=== PATIENT | female | born 1930 | race Caucasian/White ===

== ENCOUNTER 2019-03-02 14:06 | Outpatient (CLI) | payer MEDICARE ==
--- NOTE | 2019-03-02 15:17 | ULT ---
ULTRASOUND RETROPERITONEUM COMPLETE: (RENAL) HISTORY: 89-year-old female with chronic kidney disease, Stage IV. FINDINGS: The right kidney measures 9.5 x 4.5 x 4.5 cm. The left kidney measures 8.5 x 4.5 x 4.0 cm. Both kidn eys have normal cortical thickness and normal cortical echogenicity. There is no hydronephrosis. The urinary bladder is almost empty and therefore cannot be evaluated. IMPRESSION: 1. No hydronephrosis. 2. Empty bladder. 3. Bilateral kidneys are somewhat small. jn [] POS: [facility]
== END 2019-03-02 14:07 | disposition home or self-care (01) ==
LOC: SCSULT 14:06
PROVIDERS: ATTEND Internal Medicine Nephrology
DX: N18.4 Chronic kidney disease, stage 4 (severe) (principal)
CPT/HCPCS: 76770

== ENCOUNTER 2019-08-03 14:53 | Inpatient (IN) | payer MEDICARE ==
[2019-08-03 15:30] LABS: #Eosinphils 0.1 thou/uL (0.0-0.7); #Lymphocytes 0.8 thou/uL (1.20-3.40); #Monocytes 0.5 thou/uL (0.11-0.59); #Neutrophils 6.2 thou/uL (1.40-6.50); %Basophils 0.1 % (0.0-1.0); %Eosinophils 0.8 % (0.0-10.0); %Lymphocytes 10.3 % (21.0-51.0); %Monocytes 7.1 % (0.0-10.0); %Neutrophils 81.8 % (42.0-75.0); Hemoglobin 12.2 g/dL (12.0-16.0); Mean Corpuscular HGB CONC 32.8 g/dL (32.0-36.0); Mean Corpuscular Hemoglobin 29.4 pg (27.0-31.0); Mean Corpuscular Volume 89.5 fL (78.0-98.0); Mean Platelet Volume 9.4 fL (7.4-10.4); Platelet Count 210 thou/uL (130-400); RBC Distribution Width 14.3 % (11.5-14.5); Red Blood Cell (RBC) Count 4.14 mill/uL (4.20-5.40); White Blood Cell (WBC) Count 7.6 thou/uL (4.8-10.8)
[2019-08-03 15:35] LABS: Prothrombin Time 22.4 SEC (12.0-14.7)
[2019-08-03 15:36] LABS: PTT 43.7 SEC (22.9-36.1)
[2019-08-03 15:52] LABS: ALT (SGPT) 36 U/L (8-55); AST (SGOT) 36 U/L (5-34); Albumin 4.3 g/dL (3.4-4.8); Alkaline Phosphatase 130 U/L (40-150); Anion Gap 13 mmol/L (10-20); BUN (Urea Nitrogen) 24 mg/dL (9.8-20.1); Bilirubin, Total 0.7 mg/dL (0.2-1.2); Calc. Creatinine Clearance 0 mL/min (70-130); Calcium 9.6 mg/dL (7.8-10.44); Carbon Dioxide 26 mmol/L (23-31); Chloride 104 mmol/L (98-107); Estimated GFR-MDRD 42; Globulin 2.9 g/dL (2.4-3.5); Glucose 85 mg/dL (83-110); Potassium 3.9 mmol/L (3.5-5.1); Protein, Total 7.2 g/dL (6.0-8.3); Sodium 139 mmol/L (136-145)
[2019-08-03] MEDS ORDERED: Pantoprazole 40 MG VIAL ONE (16:07)
[2019-08-03 16:36] LABS: Bilirubin Negative (Negative); Blood, Urine Negative (Negative); Clarity Clear (Clear); Glucose, Urine (Dipstick) Normal (Negative); Leukocyte Negative Leu/uL (Negative); Nitrite Negative (Negative); Protein, Urine (Dipstick) Negative (Neg-Trace); Urobilinogen Normal mg/dL (Less than 2)
[2019-08-03 18:24] VITALS: BMI 25.9
[2019-08-03] MEDS ORDERED: ALPRAZolam 0.25 MG TAB PO PRN (20:30)
[2019-08-03] MEDS: Carvedilol 6.25 MG TAB PO SCH (20:57)
[2019-08-03] MEDS: Amiodarone 200 MG TAB PO SCH (20:57)
[2019-08-03] MEDS: Dextrose 5 % And 0.9 % NaCl 1,000 ML IV SCH (20:57)
[2019-08-03] MEDS: Zolpidem Tartrate 5 MG TAB PO SCH (20:57)
--- NOTE | 2019-08-04 02:52 | HP ---
CHIEF COMPLAINT: GI bleed. HISTORY OF PRESENT ILLNESS: The patient is an 89-year-old female who was in her usual state of staying awake all through the night. She has her nights and days backwards. When at about 2 a.m. on the date of admission, she started having horrible mid-epigastric cramping and pain. She went to the bathroom and she states that she nearly passed out, but she did not lose consciousness, and in the process of this, she expelled a whole lot of bloody stool. She continued to do this through the night, and finally told her children about it later that morning, they brought her to the emergency room where she was found to indeed be guaiac positive. The stools were noted to be bright red in nature. She is on two blood thinners for atrial fibrillation, Plavix and Eliquis. She has been very noncompliant with followup to her PCP, so she has never received a colonoscopy that was recommended in the past. She continues to have abdominal cramping with her passage of bright red stools in the hospital, when she has been admitted to her room, she has had 5 additional stools with bright red blood passing each time. She, however, denies shortness of breath, denies chest pain, denies feeling lightheaded or dizzy on standing. Her appetite has been good. The patient is placed n.p.o. status and a GI consult will be obtained in the morning. PAST MEDICAL HISTORY: As mentioned above. She has a history of atrial fibrillation, diabetes type 2, mainly controlled with diet. She is noncompliant to follow up. 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 History of hypertension, hyperlipidemia. PAST SURGICAL HISTORY: Includes breast biopsy, coronary artery bypass graft surgery x3 vessels, cholecystectomy, and hysterectomy, as well as carotid artery surgery. PSYCHIATRIC HISTORY: Significant for anxiety and depression. SOCIAL HISTORY: She is now two years as a , who denies alcohol or drug use and has never smoked. ALLERGIES: SHE HAS NO KNOWN DRUG ALLERGIES. MEDICATIONS: On admission include: 1. Furosemide 40 mg q.a.m. 2. Ambien 10 mg p.r.n. for insomnia. 3. Plavix 75 mg daily. 4. Amiodarone 200 mg daily. 5. Sertraline 50 mg daily. 6. Eliquis 5 mg b.i.d. 7. Levothyroxine 25 mcg p.o. daily. 8. Alprazolam 0.25 mg 1 to 3 at bedtime for insomnia. REVIEW OF SYSTEMS: CONSTITUTIONAL: At the time of admission, she denies fevers or chills. She does admit to have been fatigued and general malaise. HEENT: Denies drainage from eyes, ears, nose, or throat. No lesions in such. CARDIOVASCULAR: Denies chest pain or palpitations. CHEST: Denies cough or dyspnea. GI: Admits to recent abdominal pain with cramps, diarrhea, and blood in stool, but denies nausea or vomiting. : Denies dysuria or blood in urine. MUSCULOSKELETAL: Has mild arthritis, but no acute pains in joints. SKIN: No new rashes or lesions. LYMPHATIC: No areas of bruising or edema. PHYSICAL EXAMINATION: VITAL SIGNS: At the time of admission, vital signs on arrival in the ER, blood pressure 152/75, pulse 92, respirations 18, pain scale is 0, O2 saturation 96% on room air. GENERAL: Well-developed, well-nourished, elderly female, alert, cooperative. HEENT: Normocephalic, atraumatic. Pupils are equal, round, and reactive to light. Arcus senilis bilaterally. Pale conjunctivae. Nares and pharynx are clear. NECK: Supple. Trachea midline. No mass. CHEST: Clear to auscultation. BREASTS: Exam deferred. HEART: Regular rate and rhythm. ABDOMEN: Soft, nontender without organomegaly. : Deferred. RECTAL: Per ER physician, heme-positive. No masses in the rectum. EXTREMITIES: Without clubbing, cyanosis, or edema. Symmetrical muscular tone development noted. SKIN: Somewhat pale with poor turgor. No acute lesions. NEUROLOGIC: Cranial nerves are intact. Gait and cerebellar function are untested. Sensory exam is intact. Mental status is at baseline, which is showing signs of early dementia. A confusion probably related to having her nights and days backwards and some confusion noted over how to take her medication. Her daughter is there, has historian to help correct her. LABORATORY DATA: On admission, WBCs 7.6, hemoglobin 12.2, hematocrit 37.0 with platelets at 210. Sodium 139, potassium 3.9, chloride 104, CO2 of 26, BUN 24, creatinine 1.22 with GFR 42. Liver functions unremarkable. Cardiac enzymes negative. Urinalysis unremarkable. PT is 22.4, INR 2.0 with an APTT of 43.7. ASSESSMENT: 1. Hematochezia with bright red blood per rectum. 2. History of atrial fibrillation, on anticoagulation. 3. Hypertension. 4. Anxiety disorder. 5. History of general medical noncompliance. PLAN: The patient will be kept n.p.o. GI consultation will be sought. Maintenance fluids will be maintained. 2 units will be typed and held in case further hemorrhage occurs. The patient wishes to be a DNR witnessed by myself, the nurse, the patient, and her daughter as this was confirmed, and then serial re-evaluation of the patient. Job ID: [id number]
[2019-08-04] MEDS: Dextrose 5 % And 0.9 % NaCl 1,000 ML IV SCH ×3 (05:16→21:05)
[2019-08-04] MEDS: Levothyroxine Sodium 25 MCG TAB PO SCH (05:17)
[2019-08-04 06:07] LABS: #Eosinphils 0.1 thou/uL (0.0-0.7); #Lymphocytes 0.6 thou/uL (1.20-3.40); #Monocytes 0.6 thou/uL (0.11-0.59); #Neutrophils 4.1 thou/uL (1.40-6.50); %Basophils 0.1 % (0.0-1.0); %Eosinophils 1.9 % (0.0-10.0); %Lymphocytes 11.7 % (21.0-51.0); %Monocytes 10.6 % (0.0-10.0); %Neutrophils 75.7 % (42.0-75.0); Hemoglobin 9.9 g/dL (12.0-16.0); Mean Corpuscular HGB CONC 32.3 g/dL (32.0-36.0); Mean Corpuscular Volume 89.9 fL (78.0-98.0); Mean Platelet Volume 9.5 fL (7.4-10.4); Platelet Count 176 thou/uL (130-400); Red Blood Cell (RBC) Count 3.39 mill/uL (4.20-5.40); White Blood Cell (WBC) Count 5.5 thou/uL (4.8-10.8)
[2019-08-04 06:25] LABS: Anion Gap 9 mmol/L (10-20); BUN (Urea Nitrogen) 23 mg/dL (9.8-20.1); Calc. Creatinine Clearance 34 mL/min (70-130); Calcium 8.3 mg/dL (7.8-10.44); Carbon Dioxide 26 mmol/L (23-31); Chloride 105 mmol/L (98-107); Estimated GFR-MDRD 43; Glucose 107 mg/dL (83-110); Potassium 3.3 mmol/L (3.5-5.1); Sodium 137 mmol/L (136-145)
[2019-08-04] MEDS ORDERED: cloNIDine 0.1 MG TAB PO PRN (09:40)
[2019-08-04] MEDS: Carvedilol 6.25 MG TAB PO SCH ×2 (11:24→21:06)
[2019-08-04] MEDS: Potassium Chloride 20 MEQ TAB PO SCH (11:26)
[2019-08-04 17:59] LABS: Hemoglobin 10.7 g/dL (12.0-16.0)
[2019-08-04] MEDS: Zolpidem Tartrate 5 MG TAB PO SCH (21:06)
[2019-08-04] MEDS: Amiodarone 200 MG TAB PO SCH (21:06)
--- NOTE | 2019-08-05 03:09 | CON ---
DATE OF CONSULTATION: REASON FOR CONSULTATION: Abdominal pain, hematochezia. HISTORY OF PRESENT ILLNESS: Ms. Mariana Zepeda is a very pleasant 89-year-old female with history of heart failure, atrial fibrillation, coronary artery disease. She is on Eliquis and Plavix. 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 Mckeon. The patient developed severe abdominal cramping pain on Thursday night and it lasted through Thursday. The pain was very severe and is cramping in nature. She also has severe nausea, but did not vomit. She had no fever. No chills. The patient was found to be passing bright red blood per rectum. She passed a large amount of blood and blood clots. This was witnessed by the patient's family. The patient was brought into the ER because of the above reason. She was subsequently hospitalized because of abdominal pain and hematochezia. The patient has had no similar episodes in the past. Her bowel movements are usually regular. The patient denies having colonoscopy in the past. The patient has no upper abdominal symptoms. The pain is actually across her lower abdomen and cramping in nature. She had no indigestion. No epigastric abdominal pain. The patient also had abdominal pain, cramping and hematochezia. Admitting hemoglobin was fairly normal at 12.2. Postsurgically, it has been dropping down. Today, the blood count dropped from 12.2 to 9.9. The last one was done at 05:50 this evening, which is 10.7, hematocrit 33.7. The patient through the night has had no irregular bleeding. I spoke to Phuc at 4 o'clock this afternoon and she tells me that she has had no bleeding through the morning. When she was in the room, she had a stool and the stool was really nonbloody and not have any dark blood either. Also, abdominal pain resolved completely after that. She has clear liquid diet at the present time. No other relevant history. MEDICAL ILLNESSES: 1. Atrial fibrillation. 2. Type 2 diabetes mellitus, controlled with diet. 3. Congestive heart failure. 4. Chronic kidney disease. 5. Hypertension. 6. Hyperlipidemia. PAST SURGICAL HISTORY: 1. Coronary artery bypass graft. 2. Coronary artery stent placement. 3. Breast biopsy. 4. Cholecystectomy. 5. Hysterectomy. 6. Right carotid endarterectomy by Dr. Sanchez in the past. SOCIAL HISTORY: The patient is a . No history of alcohol intake. No history of smoking. PSYCHIATRIC HISTORY: History of anxiety and depression. MEDICATIONS: Including; 1. Furosemide 40 mg once a day. 2. Ambien 10 mg at bedtime as needed. 3. Plavix 75 mg once a day. 4. Clopidogrel 75 mg once a day. 5. Amiodarone 200 mg p.o. once a day. 6. Zoloft 50 once a day. 7. Levothyroxine 25 mcg once a day. 8. Alprazolam 0.25 mg p.o. 1 to 3 at bedtime for insomnia. REVIEW OF SYSTEMS: HEAD: No chronic headache. No dizziness. EYES: No impaired vision. No diplopia. ENT: No ear pain. No discharge. No nose bleed. No sore throat. LUNGS: No chronic coughing. No hemoptysis. No dyspnea. CARDIOVASCULAR: No chest pain. No palpitation. No dyspnea, orthopnea, or PND. She says he has pedal edema on and off. : No dysuria or any bleeding or hematuria. MUSCULOSKELETAL/ENDOCRINE: Not known. PHYSICAL EXAMINATION: GENERAL: Appears very comfortable. She is in no distress. She denies abdominal pain, nausea, or vomiting. VITAL SIGNS: Afebrile, pulse is 55, blood pressure 180/79. HEENT: Conjunctivae clear. NECK: Supple. She has a right carotid scar from previous surgery. CARDIOVASCULAR: First and second heart sounds heard. LUNGS: Clear to auscultation. ABDOMEN: Soft. No organomegaly. Abdomen is minimally tender in the left lower quadrant on deep palpation. There is no rebound or guarding. Bowel sounds normal. EXTREMITIES: Reveal no edema. LABORATORY DATA: On admission, she has normal CBC; WBC 7600, hemoglobin 12.2, hematocrit 37, MCV 89.5, platelet count is 210,000. Today's blood count dropped to 9.9 this morning and then picked up to 10.7, hematocrit 33.4. Chemistry panel shows normal lytes. BUN is 24, creatinine is 1.22. Bilirubin is 0.7, AST 36, ALT 36, alkaline phosphatase is 130, albumin 4.3. CLINICAL IMPRESSION: An 89-year-old female with abdominal cramping, hematochezia. The patient most likely has ischemic colitis. Her symptoms resolved. She is not bleeding anymore and also abdomen pain resolved. The possibility that she would have diverticular disease seems unlikely as she has abdominal cramping which was severe and can be treated. 1. Mild anemia due to blood loss. 2. Mild chronic kidney disease. 3. Hypertension. 4. Diabetes. 5. Atrial fibrillation. 6. Status post coronary artery bypass graft and stent placement. RECOMMENDATIONS: 1. Clear liquid diet. 2. Repeat H and H tomorrow. 3. I met her family, son and daughter. Apparently a granddaughter is getting on Thursday afternoon and that she wanted to leave if it is possible. I will wait and see what happens. If she had no bleeding tomorrow and blood count is stable, hopefully, she can go home tomorrow afternoon and come back as an outpatient for a colonoscopy. Job ID: [id number]
[2019-08-05] MEDS: Dextrose 5 % And 0.9 % NaCl 1,000 ML IV SCH (05:24)
[2019-08-05] MEDS: Levothyroxine Sodium 25 MCG TAB PO SCH (05:25)
[2019-08-05 07:49] LABS: #Eosinphils 0.1 thou/uL (0.0-0.7); #Lymphocytes 0.6 thou/uL (1.20-3.40); #Monocytes 0.5 thou/uL (0.11-0.59); #Neutrophils 4.1 thou/uL (1.40-6.50); %Basophils 0.8 % (0.0-1.0); %Eosinophils 1.6 % (0.0-10.0); %Lymphocytes 11.2 % (21.0-51.0); %Neutrophils 77.3 % (42.0-75.0); Hemoglobin 9.6 g/dL (12.0-16.0); Mean Corpuscular Hemoglobin 29.3 pg (27.0-31.0); Mean Corpuscular Volume 88.8 fL (78.0-98.0); Mean Platelet Volume 9.5 fL (7.4-10.4); Platelet Count 164 thou/uL (130-400); RBC Distribution Width 13.9 % (11.5-14.5); Red Blood Cell (RBC) Count 3.26 mill/uL (4.20-5.40); White Blood Cell (WBC) Count 5.3 thou/uL (4.8-10.8)
[2019-08-05] MEDS: Carvedilol 6.25 MG TAB PO SCH (08:13)
[2019-08-05] MEDS: Potassium Chloride 20 MEQ TAB PO SCH (08:13)
--- NOTE | 2019-08-05 12:32 | PDOC.HOSPP ---
- Subjective Encounter Date: 08/05/19 Encounter Time: 12:30 Subjective: Admitted with abdominal pain and GI bleeding/hematochezia. No further bloody stool or abdominal pain. - Objective Vital Signs & Weight: Vital Signs (12 hours) Temp Pulse Resp BP BP Pulse Ox 08/05/19 11:49 95 08/05/19 11:43 97.6 F 50 L 16 155/56 H 95 08/05/19 08:13 185/71 H 08/05/19 07:40 93 L 08/05/19 07:37 97.7 F 51 L 16 185/71 H 93 L 08/05/19 04:16 98.2 F 52 L 21 H 174/78 H 92 L Weight Admit Weight 142 lb Weight 142 lb I&O: 08/04/19 08/05/19 08/06/19 06:59 06:59 06:59 Intake Total 2190 1065 960 Balance 2190 1065 960 Result Diagrams: 08/05/19 13:11 08/05/19 13:11 Hospitalist ROS - Medication Medications: Active Medications Generic Name Dose Route Start Last Admin Trade Name Isaelq PRN Reason Stop Dose Admin Amiodarone HCl 200 mg 08/03/19 21:00 08/04/19 21:06 Cordarone PO 200 mg HS EMELIA Administration Carvedilol 6.25 mg 08/03/19 21:00 08/05/19 08:13 Coreg PO 6.25 mg BID EMELIA Administration Levothyroxine Sodium 25 mcg 08/04/19 06:00 08/05/19 05:25 Synthroid PO 25 mcg 0600 EMELIA Administration Potassium Chloride 20 meq 08/04/19 09:00 08/05/19 08:13 K-Dur PO 20 meq DAILY EMELIA Administration Sertraline HCl 50 mg 08/04/19 09:00 08/05/19 08:13 Zoloft PO 50 mg DAILY EMELIA Administration Zolpidem Tartrate 10 mg 08/03/19 21:00 08/04/19 21:06 Ambien PO 10 mg HS EMELIA Administration - Exam General Appearance: awake alert Eye: anicteric sclera ENT: normocephalic atraumatic Neck: supple, symmetric Heart: no murmur Respiratory: no wheezes, no rales, no ronchi, normal chest expansion Gastrointestinal: soft, non-tender, non-distended, normal bowel sounds Extremities: no cyanosis, no edema Neurological: CN's grossly intact, no focal deficits Psychiatric: normal affect, A&O x 3 Hosp A/P (1) GI bleeding Code(s): K92.2 - GASTROINTESTINAL HEMORRHAGE, UNSPECIFIED Status: Acute (2) Ischemic colitis Code(s): K55.9 - VASCULAR DISORDER OF INTESTINE, UNSPECIFIED Status: Acute (3) Acute blood loss anemia Code(s): D62 - ACUTE POSTHEMORRHAGIC ANEMIA Status: Acute (4) HTN (hypertension) Code(s): I10 - ESSENTIAL (PRIMARY) HYPERTENSION Status: Acute (5) CAD (coronary artery disease) Code(s): I25.10 - ATHSCL HEART DISEASE OF [place] CORONARY ARTERY W/O ANG PCTRS Status: Acute (6) Hypothyroid Code(s): E03.9 - HYPOTHYROIDISM, UNSPECIFIED Status: Acute (7) Abdominal pain Code(s): R10.9 - UNSPECIFIED ABDOMINAL PAIN Status: Acute (8) Chronic anticoagulation Code(s): Z79.01 - FPC (CURRENT) USE OF ANTICOAGULANTS Status: Acute (9) Atrial fibrillation Code(s): I48.91 - UNSPECIFIED ATRIAL FIBRILLATION Status: Acute - Plan get repeat BMP and H/H. Get serum magnesium Correct electrolytes if indicated. For discharge if H/H is stable.
[2019-08-05 13:19] LABS: Hemoglobin 10.7 g/dL (12.0-16.0)
--- NOTE | 2019-08-05 13:33 | DIS ---
DATE OF ADMISSION: 08/04/2019 DATE OF DISCHARGE: 08/05/2019 PRIMARY CARE PHYSICIAN: Westley Hamilton MD DISCHARGE DIAGNOSES: 1. Acute gastrointestinal bleeding. 2. Possible ischemic colitis. 3. Hematochezia. 4. Acute blood loss anemia. 5. Abdominal pain. 6. Acute gastrointestinal bleeding. 7. Paroxysmal atrial fibrillation. 8. Chronic anticoagulation. 9. Diabetic mellitus. 10. Chronic congestive heart failure. 11. Chronic kidney disease, stage 3. 12. Hypokalemia. 13. Hypertension. 14. Coronary artery disease, status post coronary artery bypass grafting. 15. Hypothyroidism. CONSULTS: Gastroenterology. HOSPITAL COURSE: An 89-year-old female with multiple comorbidities including atrial fibrillation on chronic anticoagulation with Eliquis, coronary artery disease status post CABG, hypertension, and others, admitted due to acute onset of abdominal pain associated with frequent episodes of bloody stools. The patient also reported near syncope, but denied syncopal episode or loss of consciousness. The patient was treated with IV fluids with improvement in hemodynamics. GI consult was obtained and possibility of ischemic colitis was contemplated and colonoscopy was planned. However, the patient who has a family wedding in the next day or so, will prefer to be discharged to attend a wedding. This was discussed with the GI physician, who accepted to her request if hemoglobin and hematocrit will be stable. The patient was monitored with serial H and H. After the initial drop from 12 on admission to 9.7, hemoglobin remained stable and the patient also remained hemodynamically stable and was subsequently discharged home. The patient is to call on return from the wedding to have a colonoscopy scheduled. It was also recommended that the patient should be off any antiplatelet or any anticoagulation. PHYSICAL EXAMINATION: VITAL SIGNS: Temperature 97.6, pulse 50, respiratory rate 16, SpO2 of 95% on room air, and blood pressure 155/56. GENERAL: Healthy-looking elderly female, in no obvious distress. Afebrile. Anicteric. Acyanotic. HEENT: Normocephalic and atraumatic. Oral mucosa is moist. CARDIOVASCULAR: Normal heart sounds 1 and 2. No obvious murmur appreciated. GI: Full, soft, nontender, and nondistended with normal bowel sounds. EXTREMITIES: Grossly normal looking atraumatic with no obvious edema or erythema. 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 Cranial nerves 2 through 12 are grossly intact. The patient is ambulant. DISCHARGE DISPOSITION: Home. DISCHARGE CONDITION: Improved. FOLLOWUP: 1. With PCP in 1 week. 2. With GI physician in 1 week. DISCHARGE MEDICATIONS: See discharge med rec. This discharge took more than 33 minutes. Job ID: [id number]
[2019-08-05 13:40] LABS: Anion Gap 10 mmol/L (10-20); BUN (Urea Nitrogen) 14 mg/dL (9.8-20.1); Calc. Creatinine Clearance 38 mL/min (70-130); Calcium 8.9 mg/dL (7.8-10.44); Carbon Dioxide 23 mmol/L (23-31); Chloride 111 mmol/L (98-107); Estimated GFR-MDRD 49; Glucose 83 mg/dL (83-110); Magnesium 1.9 mg/dL (1.6-2.6); Potassium 4.1 mmol/L (3.5-5.1); Sodium 140 mmol/L (136-145)
[2019-08-05] MEDS ORDERED: Amlodipine 10 MG TAB PO SCH (16:00)
--- NOTE | 2019-08-05 16:26 | PRG ---
DATE OF SERVICE: 08/05/2019 SUBJECTIVE: This is an 89-year-old woman, hospitalized with severe abdominal cramping and hematochezia. Since admission, her symptoms markedly improved. Her abdominal pain resolved. She is not having anymore bleeding. Her blood count did drop from 12 to 9.9 and 10.7. Through the night, she has had no abdominal pain. She is having one or two stools last night and the stools are basically brownish. No old blood or any fresh blood seen. Blood count remained stable around 9.9 to 10.7. This morning, 9.6. She has no complaints. PHYSICAL EXAMINATION: GENERAL: Appears very comfortable. VITAL SIGNS: She is afebrile. Her pulse is around 50, blood pressure is fluctuating between 155/56 to 185 diastolic. CARDIOVASCULAR AND LUNGS: Within normal limits. ABDOMEN: Soft. Abdomen is nondistended. Abdomen is nontender. LABORATORY DATA: From today, hemoglobin 9.6, hematocrit 29, platelet count 164,000. CLINICAL IMPRESSION: Her symptoms are strongly suggestive of acute ischemic colitis and seems to have improved. She is not having abdominal pain. No more hematochezia. She is on Plavix and Eliquis. If she has no bleeding from GI standpoint, she can be discharged home. Apparently, her granddaughter is getting and she is anxious to leave the hospital. I agree with her the decision to go home. I have given my card to the family and they will call me to make an appointment early next week. My recommendation as follows. 1. Hold off Plavix. 2. Restart Eliquis 5 mg p.o. twice a day until she comes back to see me. Eliquis can be stopped usually for 2 days before colonoscopy. I will hold off the Plavix until she comes back or calls. Job ID: [id number]
[2019-08-05 17:53] VITALS: BP 148/78; TEMP 97.8
--- NOTE | 2019-08-05 19:59 | PDOC.EVN ---
Event Note - Event Note Event Note: discharge summary dictated. #[id number]
--- NOTE | 2019-08-07 02:09 | EKG ---
Test Reason : Blood Pressure : / mmHG Vent. Rate : 085 BPM Atrial Rate : 085 BPM P-R Int : 218 ms QRS Dur : 086 ms QT Int : 408 ms P-R-T Axes : 058 034 -61 degrees QTc Int : 485 ms Sinus rhythm with 1st degree A-V block Prolonged QT Abnormal ECG Motion artifact Confirmed by MASOUD AMIN DO ([id number]), online content editor SASKIA TAPIA ([id number]) on 08/07/2019 2:08:34 AM Referred By: Confirmed By:MASOUD AMIN DO
== END 2019-08-05 18:15 | disposition home or self-care (01) | DRG 394 ==
LOC: ERS 14:53 → T4-A 16:25 → OBSVTOIN 08-04 09:44 → MERGE 08-04 09:44
PROVIDERS: ADMIT Specialist; ATTEND Specialist
DX: K55.039 Acute (reversible) ischemia of large intestine, extent unspecified (principal); I13.0 Hypertensive heart and chronic kidney disease with heart failure and stage 1 through stage 4 chronic kidney disease, or unspecified chronic kidney disease; D62 Acute posthemorrhagic anemia; I48.91 Unspecified atrial fibrillation; I50.9 Heart failure, unspecified; E78.5 Hyperlipidemia, unspecified; F41.9 Anxiety disorder, unspecified; F32.9 Major depressive disorder, single episode, unspecified; Z66 Do not resuscitate; E11.22 Type 2 diabetes mellitus with diabetic chronic kidney disease; I48.0 Paroxysmal atrial fibrillation; E87.6 Hypokalemia; E03.9 Hypothyroidism, unspecified; N18.3 Chronic kidney disease, stage 3 (moderate); I25.10 Atherosclerotic heart disease of native coronary artery without angina pectoris; Z79.01 Long term (current) use of anticoagulants; Z95.1 Presence of aortocoronary bypass graft; Z90.710 Acquired absence of both cervix and uterus; Z90.49 Acquired absence of other specified parts of digestive tract; Z79.02 Long term (current) use of antithrombotics/antiplatelets; Z79.899 Other long term (current) drug therapy; Z91.14 Patient's other noncompliance with medication regimen
CPT/HCPCS: 36415; 36416; 80048; 80053; 81003; 83735; 84443; 84484; 85025; 85610; 85730; 86850; 86900; 86901; 93005; 96374; C9113

== ENCOUNTER 2020-12-20 15:13 | Inpatient (IN) | payer MEDICARE ==
[2020-12-20 16:38] LABS: #Basophils 0.1 thou/uL (0.0-0.2); #Lymphocytes 0.7 thou/uL (1.20-3.40); #Monocytes 0.7 thou/uL (0.11-0.59); #Neutrophils 7.4 thou/uL (1.40-6.50); %Basophils 0.6 % (0.0-1.0); %Eosinophils 0.3 % (0.0-10.0); %Lymphocytes 7.8 % (21.0-51.0); %Neutrophils 83.2 % (42.0-75.0); Hemoglobin 10.1 g/dL (12.0-16.0); Mean Corpuscular HGB CONC 29.9 g/dL (32.0-36.0); Mean Corpuscular Hemoglobin 22.2 pg (27.0-31.0); Mean Corpuscular Volume 74.1 fL (78.0-98.0); Mean Platelet Volume 10.4 fL (7.4-10.4); Platelet Count 309 thou/uL (130-400); RBC Distribution Width 18.9 % (11.5-14.5); Red Blood Cell (RBC) Count 4.54 mill/uL (4.20-5.40); White Blood Cell (WBC) Count 8.9 thou/uL (4.8-10.8)
[2020-12-20 17:18] LABS: Anisocytosis SLIGHT = 6-15 cells (100X) (0-5/hpf); Hypochromia SLIGHT = 6-15 cells (100X) (0-5/hpf); MDiff Complete? YES; Microcytosis SLIGHT = 6-15 cells (100X) (0-5/hpf); Ovalocytes SLIGHT = 2-5 cells (100X) (0-1/hpf); Platelet Morphology Comment Appears Adequate; Poikilocytosis SLIGHT = 6-15 cells (100X) (0-5/hpf); Polychromasia SLIGHT = 2-3 cells (100X) (0-2/hpf); Schistocytes SLIGHT = 2-5 cells (100X) (0-1/hpf); Target Cells SLIGHT = 2-5 cells (100X) (0-1/hpf); Tear Drops SLIGHT = 2-5 cells (100X) (0-1/hpf)
[2020-12-20] MEDS ORDERED: rOPINIRole HCl 1 MG TAB PO SCH (17:45)
[2020-12-20 18:09] LABS: Albumin 3.5 g/dL (3.4-4.8)
[2020-12-20 18:10] LABS: Chloride 102 mmol/L (98-107); Potassium 4.4 mmol/L (3.5-5.1); Sodium 135 mmol/L (136-145)
[2020-12-20 18:11] LABS: Calcium 8.6 mg/dL (7.8-10.44); Glucose 100 mg/dL (83-110)
[2020-12-20 18:12] LABS: Globulin 3.3 g/dL (2.4-3.5); Protein, Total 6.8 g/dL (6.0-8.3)
[2020-12-20 18:13] LABS: Anion Gap 15 mmol/L (10-20); Bilirubin, Total 0.5 mg/dL (0.2-1.2); Carbon Dioxide 22 mmol/L (23-31)
[2020-12-20 18:14] LABS: Alkaline Phosphatase 233 U/L (40-110)
[2020-12-20 18:15] LABS: Calc. Creatinine Clearance 0 mL/min (70-130)
[2020-12-20 18:16] LABS: BUN (Urea Nitrogen) 26 mg/dL (9.8-20.1)
[2020-12-20 18:17] LABS: ALT (SGPT) 26 U/L (8-55); AST (SGOT) 55 U/L (5-34)
[2020-12-20 18:18] LABS: Lipase 49 U/L (8-78)
[2020-12-20] MEDS ORDERED: Furosemide 40 MG/4 ML VIAL ONE (18:35)
[2020-12-20 20:41] LABS: Troponin I 0.012 ng/mL (< 0.028)
[2020-12-20] MEDS ORDERED: Acetaminophen 325 MG TAB PO PRN (21:30)
[2020-12-20] MEDS ORDERED: Ondansetron ODT 4 MG TAB SL PRN (21:30)
[2020-12-20] MEDS ORDERED: Ondansetron PF 4 MG/2 ML Vial IVP PRN (21:30)
[2020-12-21 00:08] LABS: Troponin I 0.021 ng/mL (< 0.028)
[2020-12-21 05:30] LABS: SARS-CoV-2 PCR by NAA Not Detected (NotDetected)
[2020-12-21] MEDS ORDERED: Acetaminophen 325 MG TAB PO PRN (07:10)
[2020-12-21] MEDS ORDERED: Levothyroxine Sodium 50 MCG TAB PO SCH (07:15)
[2020-12-21] MEDS: Furosemide 40 MG/4 ML VIAL SLOW IVP SCH ×2 (08:47→13:12)
[2020-12-21] MEDS: Aspirin Chewable 81 MG TAB PO SCH (08:48)
[2020-12-21] MEDS: Clopidogrel Bisulfate 75 MG TAB PO SCH (08:48)
[2020-12-21] MEDS ORDERED: Amiodarone 200 MG TAB PO SCH (09:00)
[2020-12-21 18:04] LABS: #Basophils 0.2 thou/uL (0.0-0.2); #Lymphocytes 0.7 thou/uL (1.20-3.40); #Monocytes 0.8 thou/uL (0.11-0.59); #Neutrophils 6.9 thou/uL (1.40-6.50); %Basophils 2.2 % (0.0-1.0); %Eosinophils 0.4 % (0.0-10.0); %Lymphocytes 8.6 % (21.0-51.0); %Monocytes 8.8 % (0.0-10.0); %Neutrophils 80.2 % (42.0-75.0); Hemoglobin 8.8 g/dL (12.0-16.0); Mean Corpuscular HGB CONC 29.9 g/dL (32.0-36.0); Mean Corpuscular Volume 73.6 fL (78.0-98.0); Mean Platelet Volume 9.9 fL (7.4-10.4); Platelet Count 299 thou/uL (130-400); RBC Distribution Width 18.9 % (11.5-14.5); Red Blood Cell (RBC) Count 4.02 mill/uL (4.20-5.40); White Blood Cell (WBC) Count 8.6 thou/uL (4.8-10.8)
[2020-12-21 18:23] LABS: Iron 16 ug/dL (50-170); Iron Binding Capacity, Total 350 mcg/dL (265-497)
[2020-12-21] MEDS: rOPINIRole HCl 1 MG TAB PO SCH (19:28)
[2020-12-21] MEDS: Zolpidem Tartrate 5 MG TAB PO SCH (20:29)
[2020-12-21] MEDS: Carvedilol 3.125 MG TAB PO SCH (20:29)
[2020-12-21] MEDS ORDERED: Carvedilol 6.25 MG TAB PO SCH (21:00)
[2020-12-22 04:45] LABS: #Basophils 0.1 thou/uL (0.0-0.2); #Lymphocytes 0.6 thou/uL (1.20-3.40); #Monocytes 0.7 thou/uL (0.11-0.59); #Neutrophils 6.3 thou/uL (1.40-6.50); %Basophils 0.8 % (0.0-1.0); %Eosinophils 0.5 % (0.0-10.0); %Lymphocytes 7.9 % (21.0-51.0); %Monocytes 8.9 % (0.0-10.0); %Neutrophils 81.9 % (42.0-75.0); Hemoglobin 8.3 g/dL (12.0-16.0); Mean Corpuscular HGB CONC 30.1 g/dL (32.0-36.0); Mean Corpuscular Hemoglobin 22.1 pg (27.0-31.0); Mean Corpuscular Volume 73.4 fL (78.0-98.0); Mean Platelet Volume 10.3 fL (7.4-10.4); Platelet Count 276 thou/uL (130-400); RBC Distribution Width 18.5 % (11.5-14.5); Red Blood Cell (RBC) Count 3.75 mill/uL (4.20-5.40); White Blood Cell (WBC) Count 7.7 thou/uL (4.8-10.8)
[2020-12-22 05:08] LABS: Anion Gap 14 mmol/L (10-20); BUN (Urea Nitrogen) 32 mg/dL (9.8-20.1); Calc. Creatinine Clearance 29 mL/min (70-130); Calcium 8.3 mg/dL (7.8-10.44); Carbon Dioxide 26 mmol/L (23-31); Chloride 100 mmol/L (98-107); Glucose 93 mg/dL (83-110); Potassium 3.8 mmol/L (3.5-5.1); Sodium 136 mmol/L (136-145)
[2020-12-22] MEDS: Levothyroxine Sodium 50 MCG TAB PO SCH (05:27)
[2020-12-22] MEDS: Aspirin Chewable 81 MG TAB PO SCH (09:07)
[2020-12-22] MEDS: Clopidogrel Bisulfate 75 MG TAB PO SCH (09:07)
[2020-12-22] MEDS: Carvedilol 3.125 MG TAB PO SCH (09:07)
[2020-12-22] MEDS: Ferrous Sulfate 325 MG TAB PO SCH (17:46)
[2020-12-22] MEDS: rOPINIRole HCl 1 MG TAB PO SCH (17:47)
[2020-12-22] MEDS ORDERED: Furosemide 40 MG/4 ML VIAL ONE (18:19)
[2020-12-22] MEDS ORDERED: Furosemide 40 MG/4 ML VIAL SLOW IVP SCH (18:30)
[2020-12-22] MEDS: Carvedilol 6.25 MG TAB PO SCH (20:49)
[2020-12-22] MEDS: Zolpidem Tartrate 5 MG TAB PO SCH (20:49)
[2020-12-23 04:55] LABS: #Eosinphils 0.1 thou/uL (0.0-0.7); #Lymphocytes 0.8 thou/uL (1.20-3.40); #Monocytes 0.7 thou/uL (0.11-0.59); #Neutrophils 5.3 thou/uL (1.40-6.50); %Lymphocytes 12.2 % (21.0-51.0); %Monocytes 10.3 % (0.0-10.0); %Neutrophils 76.6 % (42.0-75.0); Hemoglobin 8.1 g/dL (12.0-16.0); Mean Corpuscular Hemoglobin 22.1 pg (27.0-31.0); Mean Corpuscular Volume 73.9 fL (78.0-98.0); Mean Platelet Volume 10.1 fL (7.4-10.4); Platelet Count 271 thou/uL (130-400); RBC Distribution Width 18.6 % (11.5-14.5); Red Blood Cell (RBC) Count 3.68 mill/uL (4.20-5.40); White Blood Cell (WBC) Count 6.9 thou/uL (4.8-10.8)
[2020-12-23 05:14] LABS: Anion Gap 12 mmol/L (10-20); BUN (Urea Nitrogen) 31 mg/dL (9.8-20.1); Calc. Creatinine Clearance 29 mL/min (70-130); Calcium 8.2 mg/dL (7.8-10.44); Carbon Dioxide 26 mmol/L (23-31); Chloride 100 mmol/L (98-107); Glucose 92 mg/dL (83-110); Potassium 3.4 mmol/L (3.5-5.1); Sodium 135 mmol/L (136-145)
[2020-12-23] MEDS: Levothyroxine Sodium 50 MCG TAB PO SCH (05:32)
[2020-12-23] MEDS ORDERED: Potassium Chloride 20 MEQ TAB PO SCH (08:45)
[2020-12-23] MEDS: Ferrous Sulfate 325 MG TAB PO SCH ×2 (09:38→17:18)
[2020-12-23] MEDS: Carvedilol 6.25 MG TAB PO SCH ×2 (09:39→22:00)
[2020-12-23] MEDS: Furosemide 40 MG TAB PO SCH (09:39)
[2020-12-23] MEDS: Aspirin Chewable 81 MG TAB PO SCH (09:39)
[2020-12-23] MEDS: GoLYTELY 4,000 ml Bottle PO SCH (18:36)
[2020-12-23] MEDS: rOPINIRole HCl 1 MG TAB PO SCH (22:02)
[2020-12-23] MEDS: Zolpidem Tartrate 5 MG TAB PO SCH (22:02)
[2020-12-24] MEDS: Levothyroxine Sodium 50 MCG TAB PO SCH (05:59)
[2020-12-24] MEDS ORDERED: Ondansetron HCl/PF 4 MG/2 ML Vial IVP PRN (10:38)
[2020-12-24] MEDS ORDERED: Promethazine HCl 25 MG/ML VIAL SLOW IVP PRN (10:38)
[2020-12-24] MEDS ORDERED: Promethazine HCl 25 MG/ML VIAL IM PRN (10:38)
[2020-12-24] MEDS ORDERED: Lidocaine 1% PF 5 ML VIAL ONE (11:20)
[2020-12-24] MEDS ORDERED: ePHEDrine 50 MG/ML VIAL ONE (11:20)
[2020-12-24] MEDS ORDERED: PROPOFOL 200 MG/20 ML VIAL ONE (11:21)
[2020-12-24] MEDS: Ferrous Sulfate 325 MG TAB PO SCH ×2 (11:58→17:50)
[2020-12-24] MEDS: Potassium Chloride 10 MEQ TAB PO SCH (11:58)
[2020-12-24] MEDS: Aspirin Chewable 81 MG TAB PO SCH (11:58)
[2020-12-24] MEDS: Furosemide 40 MG TAB PO SCH (11:59)
[2020-12-24] MEDS: hydrALAZINE 25 MG TAB PO SCH ×2 (11:59→20:59)
[2020-12-24] MEDS: Carvedilol 3.125 MG TAB PO SCH ×2 (12:32→20:57)
[2020-12-24] MEDS: rOPINIRole HCl 1 MG TAB PO SCH (17:50)
[2020-12-24] MEDS: GoLYTELY 4,000 ml Bottle PO SCH (17:52)
[2020-12-24] MEDS: Zolpidem Tartrate 5 MG TAB PO SCH (20:57)
[2020-12-25] MEDS: Levothyroxine Sodium 50 MCG TAB PO SCH (05:22)
[2020-12-25 07:05] LABS: #Lymphocytes 0.5 thou/uL (1.20-3.40); #Monocytes 0.5 thou/uL (0.11-0.59); #Neutrophils 7.2 thou/uL (1.40-6.50); %Basophils 0.2 % (0.0-1.0); %Eosinophils 0.3 % (0.0-10.0); %Lymphocytes 6.2 % (21.0-51.0); %Monocytes 6.5 % (0.0-10.0); %Neutrophils 86.9 % (42.0-75.0); Hemoglobin 8.2 g/dL (12.0-16.0); Mean Corpuscular HGB CONC 30.2 g/dL (32.0-36.0); Mean Corpuscular Hemoglobin 22.5 pg (27.0-31.0); Mean Corpuscular Volume 74.6 fL (78.0-98.0); Mean Platelet Volume 9.7 fL (7.4-10.4); Platelet Count 278 thou/uL (130-400); RBC Distribution Width 18.7 % (11.5-14.5); Red Blood Cell (RBC) Count 3.64 mill/uL (4.20-5.40); White Blood Cell (WBC) Count 8.3 thou/uL (4.8-10.8)
[2020-12-25 07:21] LABS: Anion Gap 13 mmol/L (10-20); BUN (Urea Nitrogen) 21 mg/dL (9.8-20.1); Calc. Creatinine Clearance 32 mL/min (70-130); Calcium 8.2 mg/dL (7.8-10.44); Carbon Dioxide 26 mmol/L (23-31); Chloride 101 mmol/L (98-107); Glucose 81 mg/dL (83-110); Potassium 3.4 mmol/L (3.5-5.1); Sodium 137 mmol/L (136-145)
[2020-12-25] MEDS: Furosemide 40 MG TAB PO SCH (08:43)
[2020-12-25] MEDS: Carvedilol 3.125 MG TAB PO SCH (08:43)
[2020-12-25] MEDS: hydrALAZINE 25 MG TAB PO SCH ×2 (08:43→20:00)
[2020-12-25] MEDS: Aspirin Chewable 81 MG TAB PO SCH (08:43)
[2020-12-25] MEDS: Potassium Chloride 10 MEQ TAB PO SCH (08:43)
[2020-12-25] MEDS: Ferrous Sulfate 325 MG TAB PO SCH ×2 (08:43→18:11)
[2020-12-25] MEDS: rOPINIRole HCl 1 MG TAB PO SCH (18:11)
[2020-12-25] MEDS: Zolpidem Tartrate 5 MG TAB PO SCH (20:00)
[2020-12-26 04:34] LABS: #Lymphocytes 0.7 thou/uL (1.20-3.40); #Monocytes 0.8 thou/uL (0.11-0.59); #Neutrophils 7.6 thou/uL (1.40-6.50); %Basophils 0.3 % (0.0-1.0); %Eosinophils 0.3 % (0.0-10.0); %Monocytes 8.4 % (0.0-10.0); Mean Corpuscular HGB CONC 30.8 g/dL (32.0-36.0); Mean Corpuscular Hemoglobin 22.8 pg (27.0-31.0); Mean Platelet Volume 10.2 fL (7.4-10.4); Platelet Count 281 thou/uL (130-400); RBC Distribution Width 18.5 % (11.5-14.5); White Blood Cell (WBC) Count 9.1 thou/uL (4.8-10.8)
[2020-12-26 04:48] LABS: Anion Gap 14 mmol/L (10-20); BUN (Urea Nitrogen) 25 mg/dL (9.8-20.1); Calc. Creatinine Clearance 30 mL/min (70-130); Calcium 8.1 mg/dL (7.8-10.44); Carbon Dioxide 25 mmol/L (23-31); Chloride 101 mmol/L (98-107); Glucose 86 mg/dL (83-110); Potassium 3.3 mmol/L (3.5-5.1); Sodium 137 mmol/L (136-145)
[2020-12-26] MEDS: Levothyroxine Sodium 50 MCG TAB PO SCH (05:27)
[2020-12-26] MEDS ORDERED: Furosemide 40 MG/4 ML VIAL SLOW IVP SCH (07:30)
[2020-12-26] MEDS: Aspirin Chewable 81 MG TAB PO SCH (08:33)
[2020-12-26] MEDS: hydrALAZINE 25 MG TAB PO SCH ×2 (08:33→20:10)
[2020-12-26] MEDS: Clopidogrel Bisulfate 75 MG TAB PO SCH (08:33)
[2020-12-26] MEDS: Ferrous Sulfate 325 MG TAB PO SCH ×2 (08:33→18:39)
[2020-12-26] MEDS: Potassium Chloride 20 MEQ TAB PO SCH ×2 (08:33→20:10)
[2020-12-26] MEDS: Furosemide 40 MG TAB PO SCH (08:34)
[2020-12-26] MEDS: rOPINIRole HCl 1 MG TAB PO SCH (18:39)
[2020-12-26] MEDS: Zolpidem Tartrate 5 MG TAB PO SCH (20:10)
[2020-12-27 04:29] LABS: #Lymphocytes 0.7 thou/uL (1.20-3.40); #Monocytes 0.8 thou/uL (0.11-0.59); #Neutrophils 8.1 thou/uL (1.40-6.50); %Basophils 0.2 % (0.0-1.0); %Eosinophils 0.3 % (0.0-10.0); %Lymphocytes 7.3 % (21.0-51.0); %Monocytes 8.2 % (0.0-10.0); Hemoglobin 8.2 g/dL (12.0-16.0); Mean Corpuscular HGB CONC 30.6 g/dL (32.0-36.0); Mean Corpuscular Hemoglobin 22.7 pg (27.0-31.0); Mean Corpuscular Volume 74.1 fL (78.0-98.0); Mean Platelet Volume 9.7 fL (7.4-10.4); Platelet Count 281 thou/uL (130-400); RBC Distribution Width 18.7 % (11.5-14.5); Red Blood Cell (RBC) Count 3.59 mill/uL (4.20-5.40); White Blood Cell (WBC) Count 9.7 thou/uL (4.8-10.8)
[2020-12-27 04:47] LABS: Anion Gap 11 mmol/L (10-20); BUN (Urea Nitrogen) 24 mg/dL (9.8-20.1); Calc. Creatinine Clearance 35 mL/min (70-130); Calcium 8.1 mg/dL (7.8-10.44); Carbon Dioxide 26 mmol/L (23-31); Chloride 103 mmol/L (98-107); Glucose 98 mg/dL (83-110); Potassium 3.7 mmol/L (3.5-5.1); Sodium 136 mmol/L (136-145)
[2020-12-27] MEDS: Levothyroxine Sodium 50 MCG TAB PO SCH (05:14)
[2020-12-27] MEDS ORDERED: Furosemide 40 MG TAB PO SCH (06:00)
[2020-12-27] MEDS ORDERED: Spironolactone 25 MG TAB PO SCH (08:00)
[2020-12-27] MEDS ORDERED: Bumetanide 1 MG TAB PO SCH (08:00)
[2020-12-27] MEDS: Ferrous Sulfate 325 MG TAB PO SCH ×2 (08:28→18:00)
[2020-12-27] MEDS: Clopidogrel Bisulfate 75 MG TAB PO SCH (08:29)
[2020-12-27] MEDS: Aspirin Chewable 81 MG TAB PO SCH (08:29)
[2020-12-27] MEDS: Benzonatate 100 MG CAP PO SCH ×3 (08:29→20:25)
[2020-12-27] MEDS: hydrALAZINE 25 MG TAB PO SCH ×2 (08:30→20:26)
[2020-12-27] MEDS ORDERED: Metolazone 2.5 MG TAB PO SCH (08:30)
[2020-12-27] MEDS: Potassium Chloride 20 MEQ TAB PO SCH ×2 (08:30→20:26)
[2020-12-27 08:53] VITALS: BMI 27.0
[2020-12-27 09:54] LABS: SARS-CoV-2 NAA Rapid Test Not Detected (NotDetected)
[2020-12-27 17:59] LABS: SARS-CoV-2 IgG Ab Non-Reactive (NonReactive); SARS-CoV-2 IgG Index 0.26 S/CO (< 1.40)
[2020-12-27] MEDS: rOPINIRole HCl 1 MG TAB PO SCH (18:00)
[2020-12-27] MEDS: Budesonide 0.5 MG/2 ML NEB NEB SCH (19:33)
[2020-12-27] MEDS: Zolpidem Tartrate 5 MG TAB PO SCH (20:26)
[2020-12-28 05:37] LABS: Anion Gap 13 mmol/L (10-20); BUN (Urea Nitrogen) 24 mg/dL (9.8-20.1); Calc. Creatinine Clearance 33 mL/min (70-130); Calcium 8.5 mg/dL (7.8-10.44); Carbon Dioxide 24 mmol/L (23-31); Chloride 101 mmol/L (98-107); Glucose 93 mg/dL (83-110); Potassium 3.8 mmol/L (3.5-5.1); Sodium 134 mmol/L (136-145)
[2020-12-28 05:57] LABS: #Basophils 0.1 thou/uL (0.0-0.2); #Lymphocytes 0.8 thou/uL (1.20-3.40); #Neutrophils 7.8 thou/uL (1.40-6.50); %Basophils 1.3 % (0.0-1.0); %Eosinophils 0.3 % (0.0-10.0); %Neutrophils 80.4 % (42.0-75.0); Anisocytosis SLIGHT = 6-15 cells (100X) (0-5/hpf); Elliptocytes SLIGHT = 2-5 cells (100X) (0-1/hpf); Hemoglobin 8.4 g/dL (12.0-16.0); Hypochromia SLIGHT = 6-15 cells (100X) (0-5/hpf); MDiff Complete? YES; Mean Corpuscular HGB CONC 29.8 g/dL (32.0-36.0); Mean Corpuscular Volume 73.8 fL (78.0-98.0); Mean Platelet Volume 10.3 fL (7.4-10.4); Microcytosis SLIGHT = 6-15 cells (100X) (0-5/hpf); Platelet Count 278 thou/uL (130-400); RBC Distribution Width 18.9 % (11.5-14.5); White Blood Cell (WBC) Count 9.8 thou/uL (4.8-10.8)
[2020-12-28] MEDS: Levothyroxine Sodium 50 MCG TAB PO SCH (06:14)
[2020-12-28] MEDS ORDERED: Digoxin 0.25 MG TAB PO SCH (08:00)
[2020-12-28] MEDS: Budesonide 0.5 MG/2 ML NEB NEB SCH (08:51)
[2020-12-28] MEDS: Aspirin Chewable 81 MG TAB PO SCH (09:02)
[2020-12-28] MEDS: Benzonatate 100 MG CAP PO SCH (09:02)
[2020-12-28] MEDS: Ferrous Sulfate 325 MG TAB PO SCH (09:02)
[2020-12-28] MEDS: Clopidogrel Bisulfate 75 MG TAB PO SCH (09:02)
[2020-12-28] MEDS: hydrALAZINE 25 MG TAB PO SCH (09:02)
[2020-12-28] MEDS: Potassium Chloride 20 MEQ TAB PO SCH (09:03)
[2020-12-28 11:28] VITALS: BP 144/65; TEMP 98.4
== END 2020-12-28 13:15 | disposition home or self-care (01) | DRG 377 ==
LOC: ERS 15:13 → 2NO 19:46 → OBSVTOIN 12-21 13:09
PROVIDERS: ADMIT Specialist; ATTEND Specialist
PROC: 0W3P8ZZ Control Bleeding in Gastrointestinal Tract, Via Natural or Artificial Opening Endoscopic (ICD-10-PCS; principal; 2020-12-24)
PROC: 0DJD8ZZ Inspection of Lower Intestinal Tract, Via Natural or Artificial Opening Endoscopic (ICD-10-PCS; 2020-12-24)
PROC: 0DB98ZX Excision of Duodenum, Via Natural or Artificial Opening Endoscopic, Diagnostic (ICD-10-PCS; 2020-12-24)
DX: K31.811 Angiodysplasia of stomach and duodenum with bleeding (principal); I50.33 Acute on chronic diastolic (congestive) heart failure; I13.0 Hypertensive heart and chronic kidney disease with heart failure and stage 1 through stage 4 chronic kidney disease, or unspecified chronic kidney disease; N17.9 Acute kidney failure, unspecified; I48.11 Longstanding persistent atrial fibrillation; D62 Acute posthemorrhagic anemia; Z66 Do not resuscitate; Z51.5 Encounter for palliative care; Z23 Encounter for immunization; K57.31 Diverticulosis of large intestine without perforation or abscess with bleeding; Z20.822 Contact with and (suspected) exposure to COVID-19; I25.10 Atherosclerotic heart disease of native coronary artery without angina pectoris; E78.00 Pure hypercholesterolemia, unspecified; E78.5 Hyperlipidemia, unspecified; E03.9 Hypothyroidism, unspecified; F41.9 Anxiety disorder, unspecified; K21.9 Gastro-esophageal reflux disease without esophagitis; G25.81 Restless legs syndrome; F51.04 Psychophysiologic insomnia; D50.9 Iron deficiency anemia, unspecified; K64.4 Residual hemorrhoidal skin tags; K64.8 Other hemorrhoids; Z95.1 Presence of aortocoronary bypass graft; Z79.899 Other long term (current) drug therapy; Z91.14 Patient's other noncompliance with medication regimen; Z79.890 Hormone replacement therapy; Z94.9 Transplanted organ and tissue status, unspecified; Z90.710 Acquired absence of both cervix and uterus; Z79.82 Long term (current) use of aspirin; Z95.5 Presence of coronary angioplasty implant and graft
CPT/HCPCS: 36415; 36416; 71045; 71046; 74270; 80048; 80053; 82270; 82728; 83540; 83550; 83690; 83880; 84443; 84484; 85025; 86769; 87635; 88305; 90471; 90732; 93005; 93306; 94640; 96374; G0009; G0378; J1940; J2704; J3490; J7620; J7626; U0002; U0003; U0005